=== PATIENT | male | born 1955 | race Caucasian/White ===

== ENCOUNTER → 2017-06-30 | Day surgery (SDC) | payer MEDICARE ==
[~2017-06-30] MED LIST: ADDE10 PO; ASPI1TAB69 PO; ATOR10TA15 PO; CARD120T4 PO; CENTTAB PO; CIAL5TAB PO; CLOB0.0571 TOPICAL; FENO160T PO; GABA300C5 PO; GLEE100T PO; GLEE400T2 PO; HYDR-3113 PO; LIDOCAINE HCL 1% PF 30 ML VIAL INFIL ONE; MEPERIDINE HCL 25 MG/ML VIAL IV ONE; MIDAZOLAM HCL 2 MG/2 ML VIAL IV ONE; NALO1TAB PO; NAPR500T PO; OMEP20TA PO; PROPOFOL 200 MG/20 ML AMP IV ONE; SODIUM CHLORIDE 0.9% 10 ML VIAL ONE; TEST1INJ3 IM; TIZA2TAB PO; TIZA4CAP3 PO; TRIAMCINOLONE ACETONIDE 40 MG/ML VIAL NERV BLOCK ONE; VITATAB11; methylPREDNISolone ACETATE 80 MG/ML VIAL ONE
--- NOTE | 2017-06-30 11:27 | M6 ---
cc: GONSALO CHAPARRO M.D. DATE: 06/30/2017 DATE OF : 1955 PROCEDURE Fluoroscopically guided L5-S1 translaminar epidural steroid injection. PROCEDURE NOTE History and physical was completed and signed. Consent was signed. Procedure site was marked. Medications were listed and reconciled. Pain score was recorded. Allergies were noted. Timeout was taken. Fluoroscopy time was recorded where applicable. Sedation was administered or directed by Dr. Chaparro. The patient was given oxygen. The patient was monitored by a registered nurse. Total procedure time was greater than 15 minutes. An IV was started, blood pressure cuff, pulse oximeter and EKG were applied. The patient was placed in the prone position on a Esequiel table, sedated with small amounts of propofol titrated to effect. Vital signs were monitored and remained stable throughout the procedure. The lumbar area was prepped with alcohol and 10% Betadine solution, draped with sterile drapes. Fluoroscopy was used to visualize the L5-S1 interlaminar space. The skin was infiltrated with 1% Xylocaine using a 27-gauge needle. Then a 3-1/2 inch, 18-gauge Gotti needle was advanced using fluoroscopic guidance and the pgtp-sl-qihavjzmbj technique into the epidural space at L5-S1 slightly to the left of the midline. There was negative aspiration for blood or any other type of fluid and at that location the patient was given 10 mL of 0.5% Xylocaine, 80 mg of Depo-Medrol. Following the procedure the patient was taken to the recovery room with stable vital signs, neurologically intact. WMD BIBI Orellana/MARTINE /10:28 AM /11:20 AM
== END | disposition home or self-care (01) ==
LOC: PHSDC 08:28
PROVIDERS: ATTEND Pain Medicine Interventional Pain Medicine
DX: M79.605 Pain in left leg (principal); M79.604 Pain in right leg
CPT/HCPCS: 62323; 99152; J1040; J2175; J2250; J3301

== ENCOUNTER → 2017-07-15 | Day surgery (SDC) | payer MEDICARE ==
[~2017-07-15] MED LIST changes: -MIDAZOLAM HCL 2 MG/2 ML VIAL IV ONE; -TIZA2TAB PO
--- NOTE | 2017-07-15 10:25 | M6 ---
cc: GONSALO CHAPARRO M.D. DATE 07/15/2017 DATE OF 1955 PROCEDURE Fluoroscopically guided L4-5 translaminar epidural steroid injection. History and physical was completed and signed. Consent was signed. Procedure site was marked. Medications were listed and reconciled. Pain score was recorded. Allergies were noted. Time out was taken. Fluoroscopy time was recorded where applicable. Sedation was administered or directed by Dr. Chaparro. The patient was given oxygen. The patient was monitored by a registered nurse. Total procedure time was greater than 15 minutes. PROCEDURE NOTE IV was started. Blood pressure cuff, pulse oximeter and EKG were applied. The patient was placed in the prone position on a Esequiel table, sedated with small amounts of Demerol and propofol titrated to effect. Vital signs were monitored and remained stable throughout the procedure. The lumbar area was prepped with alcohol and 10% Betadine solution and draped with sterile drapes. Fluoroscopy was used to visualize the L4-5 interlaminar space. The skin was infiltrated with 1% Xylocaine using a 27- gauge needle. Then a 3-1/2-inch, 18-gauge Gotti needle was advanced using fluoroscopic guidance and the lmub-cz-[id number] technique into the epidural space at L4-5 slightly to the left of the midline. There was negative aspiration for blood or any other type of fluid and at that location the patient was given 10 mL of 0.5% Xylocaine, 80 mg of Depo-Medrol. Following this the patient was taken to the recovery room with stable vital signs, neurologically intact. WMD BIBI Orellana/STEVEN /9:37 AM /10:14 AM
== END | disposition home or self-care (01) ==
LOC: PHSDC 07:29
PROVIDERS: ATTEND Pain Medicine Interventional Pain Medicine
DX: M54.5 Low back pain (principal); M79.605 Pain in left leg; M79.604 Pain in right leg
CPT/HCPCS: 62323; 99152; J1040; J2175; J3301

== ENCOUNTER → 2017-10-11 | Day surgery (SDC) | payer MEDICARE ==
[~2017-10-11] MED LIST changes: -ASPI1TAB69 PO; +ASPI81TA23 PO; +BACL10TA PO; +BUPIVACAINE HCL PF 0.75% 30 ML VIAL ONE; -CENTTAB PO; -LIDOCAINE HCL 1% PF 30 ML VIAL INFIL ONE; -MEPERIDINE HCL 25 MG/ML VIAL IV ONE; -NALO1TAB PO; -NAPR500T PO; +NAPR500T2 PO; -OMEP20TA PO; +OMEP20TA93 PO; -SODIUM CHLORIDE 0.9% 10 ML VIAL ONE; +TEST200I12 IM; +THERH PO; +TRIAMCINOLONE ACETONIDE 40 MG/ML VIAL I-ARTICULR ONE; -TRIAMCINOLONE ACETONIDE 40 MG/ML VIAL NERV BLOCK ONE; -methylPREDNISolone ACETATE 80 MG/ML VIAL ONE
--- NOTE | 2017-10-11 11:39 | M6 ---
cc: GONSALO CHAPARRO M.D. DATE 10/11/2017 DATE OF 1955 PROCEDURE Fluoroscopically guided injection bilateral lumbar facet joints (bilateral L3-4, L4-5 and L5-S1 facet joints). History and physical was completed and signed. Consent was signed. Procedure site was marked. Medications were listed and reconciled. Pain score was recorded. Allergies were noted. Time out was taken. Fluoroscopy time was recorded where applicable. Sedation was administered or directed by Dr. Chaparro. The patient was given oxygen. The patient was monitored by a registered nurse. Total procedure time was greater than 15 minutes. PROCEDURE NOTE IV was started. Blood pressure cuff, pulse oximeter and EKG were applied. The patient was placed in the prone position on a Esequiel table, sedated with small amounts of propofol titrated to effect. Vital signs were monitored and remained stable throughout the procedure. The lumbar area was prepped with alcohol and 10% Betadine solution and draped with sterile drapes. Fluoroscopy was used in a Alfa dog view to clearly visualize the bilateral lumbar facet joints at L3-4, L4-5 and L5-S1. Separate sterile 3-1/2-inch, 25-gauge spinal needles were advanced under fluoroscopic guidance into these joints. There was negative aspiration for blood or any other type of fluid. At each location the patient was given 1 mL of Marcaine 0.75% which contained 10 mg of Kenalog. Following this the patient was taken to the recovery room with stable vital signs, neurologically intact. He will be evaluated immediately and with followup to determine if he has a subjective decrease in his usual pain and a corresponding objective increase his functional capabilities. W. Remington Chaparro MD WRM/STEVEN /10:29 AM /11:29 AM
== END | disposition home or self-care (01) ==
LOC: PHSDC 09:05
PROVIDERS: ATTEND Pain Medicine Interventional Pain Medicine
DX: M54.9 Dorsalgia, unspecified (principal); M25.551 Pain in right hip; M79.662 Pain in left lower leg
CPT/HCPCS: 64493; 64494; 64495; 99152; J3301

== ENCOUNTER → 2018-02-08 | Day surgery (SDC) | payer MEDICARE ==
[~2018-02-08] MED LIST changes: -BUPIVACAINE HCL PF 0.75% 30 ML VIAL ONE; -CARD120T4 PO; -FENO160T PO; -GABA300C5 PO; +LIDOCAINE HCL 1% 30 ML VIAL INFIL ONE; +MEPERIDINE HCL 25 MG/ML VIAL IV ONE; +MEPERIDINE HCL 50 MG/ML VIAL IV ONE; +MIDAZOLAM HCL 2 MG/2 ML VIAL IV ONE; +SODIUM CHLORIDE 0.9% 10 ML VIAL ONE; -TEST200I12 IM; -TIZA4CAP3 PO; -TRIAMCINOLONE ACETONIDE 40 MG/ML VIAL I-ARTICULR ONE; -VITATAB11; +methylPREDNISolone ACETATE 40 MG/ML VIAL I-ARTICULR ONE
--- NOTE | 2018-02-08 08:34 | M6 ---
cc: Jaspal Chaparro MD DATE: 02/08/2018 PROCEDURE: Radiofrequency ablation, bilateral lumbar facet joints (bilateral L3-4, L4-5 and L5-S1 facet joints). History and physical was completed and signed. Consent was signed. Procedure site was marked. Medications were listed and reconciled. Pain score was recorded. Allergies were noted. Time out was taken. Fluoroscopy time was recorded where applicable. Sedation was administered or directed by Dr. Chaparro. The patient was given oxygen. The patient was monitored by a registered nurse. Total procedure time was greater than 15 minutes. Three levels are being done because imaging studies show arthritis in all lumbar facet joints and because each facet joint is innervated by the medial branches from the nerves above and below that particular joint. The patient reported 50% or greater pain relief from previous diagnostic facet joint blocks done with fluoroscopic guidance. PROCEDURE: An IV was started, blood pressure cuff, pulse oximeter and EKG were applied. The patient was placed in the prone position on a Esequiel table, sedated with small amounts of Versed and fentanyl and propofol titrated to effect. Vital signs were monitored and remained stable throughout the procedure. The lumbar area was scrubbed with antimicrobial solution, prepped with 10% Betadine solution, draped with sterile drapes. Fluoroscopy was used in a slightly oblique angle (Alfa dog view) to clearly visualize the target areas which were the cephalad most medial angle of the transverse processes as they met the pedicle in the anatomical location of the medial branch of the posterior primary ramus on the bilateral L3-4, L4-5 and L5-S1 facet joints. The skin was infiltrated with 1% Xylocaine using a 27 gauge needle. An insulated 20 gauge radiofrequency needle with a 10-mm curved tip was advanced to the above-mentioned target areas. Fluoroscopy was used to confirm the needle was properly placed and not near the nerve root. At no time did the patient report any paresthesias down the lower extremity. Once properly positioned thermal lesions took place at 80 degrees Centigrade x 100 seconds at each location. Then, a small amount of Depo-Medrol was injected at each location for a total of 40 mg of Depo-Medrol. Following this, the patient was taken to the recovery room with stable vital signs neurologically intact. W. MD BIBI Gray/CHAZ , 08:13 AM , 08:34 AM
== END | disposition home or self-care (01) ==
LOC: PHSDC 06:27
PROVIDERS: ATTEND Pain Medicine Interventional Pain Medicine
DX: M54.5 Low back pain (principal)
CPT/HCPCS: 64635; 64636; 99152; 99153; J1030; J2175; J2250